=== PATIENT | female | born 1955 | race Caucasian/White ===

== ENCOUNTER → 2019-10-31 | Day surgery (SDC) | payer OTHER ==
[~2019-10-31] MED LIST: AMLODIPINE BESY10 MG PO; ATENOLOL100 MG PO; CHLORTHALIDONE25 MG PO; FENTANYL CITRATE/PF 100MCG/2 ML INJ ONE; LIPITOR10 MG PO; MIDAZOLAM HCL 2 MG/2 ML VIAL ONE; OR PHACO EYE KIT ONE; PREOP PHACO EYE KIT ONE
[2019-10-31 12:40] VITALS: BP 124/64
== END | disposition home or self-care (01) ==
LOC: OR 08:58
PROVIDERS: ATTEND Ophthalmology
DX: H25.11 Age-related nuclear cataract, right eye (principal); J45.909 Unspecified asthma, uncomplicated; I10 Essential (primary) hypertension; E78.5 Hyperlipidemia, unspecified; F41.9 Anxiety disorder, unspecified; Z01.812 Encounter for preprocedural laboratory examination; Z11.59 Encounter for screening for other viral diseases
CPT/HCPCS: 66984; J2250; J3010; U0002; V2632

== ENCOUNTER → 2019-11-14 | Day surgery (SDC) | payer OTHER ==
[2019-11-14 11:43] VITALS: BP 138/73
== END | disposition home or self-care (01) ==
LOC: OR 08:42
PROVIDERS: ATTEND Ophthalmology
DX: H25.12 Age-related nuclear cataract, left eye (principal); I10 Essential (primary) hypertension; E78.5 Hyperlipidemia, unspecified; Z01.812 Encounter for preprocedural laboratory examination; Z11.59 Encounter for screening for other viral diseases; Z87.891 Personal history of nicotine dependence
CPT/HCPCS: 66984; J2250; J3010; U0002; V2632